=== PATIENT | female | born 1945 | race Caucasian/White ===

== ENCOUNTER 2024-04-28 13:27 | Emergency (ER) | payer MEDICARE, BC, SELFPAY ==
[2024-04-28] VITALS (7 sets, daily range): BP systolic 113–141; BP diastolic 55–78; PULSE 60–82; RESP 16–20; TEMP 36.7–36.9; O2SAT 95–98; BMI 26.2
--- NOTE | 2024-04-28 13:35 | XR_ITS ---
Examination: CT lumbar spine, without contrast. 2-D sagittal reconstructions. 2-D coronal reconstructions. 3-D reconstructions. Date and time of exam:April 28, 2024 1423 hours INDICATIONS: Onset lower back pain today with radiculopathy CTDI: vol (mGy):24.9 DLP: (mGycm):819 Technique: Multiple 1.25 mm axial sections of the lumbar spine without intravenous contrast have been obtained. 2-D sagittal and coronal reconstructions have been obtained. 3-D reconstructions have been obtained. Low dose protocols were performed. One or more of the following dose reduction techniques were used; automated exposure control, adjustment of the mA and/or KV according to patient size, use of iterative reconstruction technique. Findings: Severe osteopenia Chronic osteoporotic compressions L4. Acute appearing osteoporotic compression L4, depression of the inferior endplate with acute fracture lines, axial image 124 Minimal retropulsion 3 mm of the posterior lateral margin of this vertebral body, axial image 121 Axial images demonstrate no definite focal disc protrusion IMPRESSION: Severe osteopenia Acute appearing osteoporotic compression L4 vertebral body, depression of the inferior endplate
--- NOTE | 2024-04-28 13:52 | EDNOTE_ITS ---
ED Back Injury Pain RME/HPI General Chief Complaint: Back Pain/Injury Stated Complaint: BACK PAIN Time Seen by Provider: 04/28/24 13:29 Arrival date/time: 04/28/24 13:27 Limitations: no limitations RME / HPI RME / HPI Narrative: Patient with chronic LBP and sciatica, went to her PCP and was asked to lay on the table and perform a maneuver, was not able to get up due to pain. States dispite her pain tries to remain active. Can not do MRI due to her pacemaker. She has chronic constipation which responded to combination of MiraLax and suppository. Today her pain is not radiating today. Patient reports urinary incontinence at times over the past few days. No urinary incontinence was noted on arrival. I took over the care from Dr. Newman at 6 PM on 04/28/2024. See his notes for complete H&P and ED course. My review of the CT report is no acute L4 compression fracture. Blood tests remarkable for calcium 14.3. At this point, diagnoses include hypercalcemia and L4 compression fracture with urinary incontinence. I discussed the case with Dr. Powell ([facility]). About the presentation and exam and diagnostics and treatments here. And need of further care there. Will accept the patient. Juanpablo Arce MD Related Data Home Medications ?Medication ?Instructions ?Recorded ?Confirmed temazepam 15 mg capsule 30 mg PO HS 02/25/24 02/28/24 Allergies Allergy/AdvReac Type Severity Reaction Status Date / Time erythromycin base Allergy Intermediate Vomiting Verified 02/11/24 08:10 acetaminophen Allergy Mild FELT LIKE Verified 02/11/24 08:10 HAVING HEART ATTACK aspirin Allergy Mild Abdominal Verified 02/11/24 08:10 Pain hydrocodone Allergy Mild FELT LIKE Verified 02/11/24 08:10 HAVING HEART ATTACK tramadol Allergy Mild FELT LIKE Verified 02/11/24 08:10 HAVING HEART ATTACK zolpidem Allergy Mild REMAINS Verified 02/11/24 08:10 AWAKE Review of Systems Review of Systems Systems Reviewed: All systems reviewed, normal except as documented Past Medical History Past Medical History CARDIAC: Positive Cardiac Disorders, Cardiac Arrhythmia, Atrial Fibrillation (NO MEDS) and Hypertension (NO MEDS) GASTROINTESTINAL: Positive Gastrointestinal Disorders (CONSTIPATION) REPRODUCTIVE: Positive Previous Pregnancies MUSCULOSKELETAL: Positive Musculoskeletal Disorders, Arthritis, Osteoporosis and Degenerative Joint Disease OTHER HISTORY: Positive Anesthesia Reactions (VERBALLY RUDE, OUT FOR 3 DAYS) and Chicken Pox (UNKNOWN) Surgical History SURGICAL: Positive Pacemaker, Tonsillectomy, Gastric Bypass Surgery, Joint Replacement and Hysterectomy Social History SMOKING STATUS: Never smoker ED Exam General Limitations: Present no limitations General appearance: Present alert and in no apparent distress Head Head exam: Present atraumatic, normocephalic and normal inspection Eye Eye exam: Present normal appearance and EOMI ENT ENT exam: Present normal exam and normal oropharynx Neck Neck exam: Present normal inspection and full ROM Chest Chest inspection: Present normal inspection and symmetric chest wall rise Respiratory Respiratory exam: Present normal lung sounds bilaterally Cardiovascular Cardiovascular exam: Present regular rate and normal rhythm Abdominal Exam Abdominal exam: Present soft and normal bowel sounds; Absent distention or tenderness Extremities Exam Extremities exam: Present normal inspection Back Exam Back exam: Present normal inspection and other (Patient is slow to raise from the gurney. Is unable to do ROM or SLR due to pain. Feels light touch and temperature in her legs. Has normal skin color and pulses in both legs. No midline TTP. No paraspinal spasm) Course Course Course Narrative: 1800: Patient signed out to Dr. Arce pending transfer. Quality Measures none Orders Category Date Time Status EKG (ED ONLY) *Do not use* NOW Care 04/28/24 17:19 Completed Transfer to another facility [Transfer/Discharge] Stat Discharge 04/28/24 21:[address] lumbar spine wo con Stat Exams 04/28/24 13:35 Completed EKG (ED Only) Stat Exams 04/28/24 17:19 Draft CBC Stat Lab 04/28/24 16:21 Completed CMP [Comprehensive Metabolic Panel] Stat Lab 04/28/24 16:21 Completed Magnesium Stat Lab 04/28/24 16:21 Completed PTH [Parathyroid Hormone Intact] Stat Lab 04/28/24 16:21 Completed Troponin I Stat Lab 04/28/24 16:21 Completed UA [Urinalysis] Stat Lab 04/28/24 15:52 Ordered Urinalysis, C/S if Indicated Stat Lab 04/28/24 15:52 Ordered HYDROcodone*/APAP 5/325 [[place] 5/325] Med 04/28/24 13:39 Discontinued 1 tab PO X1 ONE Polyeth Glycol/Propylene Glyco [Miralax Pkt] Med 04/28/24 13:39 Discontinued 17 gm PO X1 ONE Sodium Chloride 0.9% 1000 ml [Ns] 1,000 ml Med 04/28/24 17:19 Active IV 250 mls/hr fentaNYL INJ [Sublimaze Inj] Med 04/28/24 15:44 Discontinued 50 mcg IM X1 ONE Reevaluation(s) Reevaluation #1: The patient and daughter were made aware of the CT findings. Daughter is demanding the patient to be admitted or transferred, despite lack of emergency condition that warrants this. Time: 15:30 Reevaluation #2: Patient and daughter made aware of plan to transfer. Time: 15:58 Vital Signs Vital signs: Vital Signs Temperature 98.4 F 04/28/24 13:30 Pulse Rate 77 04/28/24 13:30 Respiratory Rate 19 04/28/24 13:30 Blood Pressure 120/78 04/28/24 13:30 Pulse Oximetry (%) 95 04/28/24 13:30 Oxygen Delivery Method Room Air 04/28/24 13:30 Pulse ox is 95% on room air which is adequate. Back Pain / Injury MDM Narrative MDM Narrative:: Lilian Fisher am scribing for and in the presence of Dr. Newman. Patient data External records reviewed:: [facility] previous records (I reviewed H&P on 02/28/2024) and EMS form Clinical information provided by:: patient, EMS and family (Daughter- adds to hpi ) Social determinants that could affect healthcare access:: none Patient has the following chronic illnesses:: chronic LBP and sciatica chronic constipation How is presenting disease/condition affected by chronic disease/condition?: exacerbated by Evaluation data The following diagnostics were reviewed and interpreted by me:: lab results (Patients calcium is 14.2 ), radiology exam(s) and EKG tracing(s) (Sinus rhythm with arrhythmia, rate 72, nonspecific ST and T-wave changes) Lab and/or radiology exams considered but not ordered:: None Interpretation Summary: Ordering Physician: Delvin Newman MD Date of Service: 04/28/24 Procedure(s): CT lumbar spine wo con Accession Number(s): [id number] cc: Delvin Newman MD; Oj Burton MD~ Examination: CT lumbar spine, without contrast. 2-D sagittal reconstructions. 2-D coronal reconstructions. 3-D reconstructions. Date and time of exam:April 28, 2024 1423 hours INDICATIONS: Onset lower back pain today with radiculopathy CTDI: vol (mGy):24.9 DLP: (mGycm):819 Technique: Multiple 1.25 mm axial sections of the lumbar spine without intravenous contrast have been obtained. 2-D sagittal and coronal reconstructions have been obtained. 3-D reconstructions have been obtained. Low dose protocols were performed. One or more of the following dose reduction techniques were used; automated exposure control, adjustment of the mA and/or KV according to patient size, use of iterative reconstruction technique. Findings: Severe osteopenia Chronic osteoporotic compressions L4. Acute appearing osteoporotic compression L4, depression of the inferior endplate with acute fracture lines, axial image 124 Minimal retropulsion 3 mm of the posterior lateral margin of this vertebral body, axial image 121 Axial images demonstrate no definite focal disc protrusion IMPRESSION: Severe osteopenia Acute appearing osteoporotic compression L4 vertebral body, depression of the inferior endplate Dictated By: Oj Burtno MD Signed By: <Electronically signed by Oj Burton MD in OV> 04/28/24 1454 Medications / Prescriptions Medications or Prescriptions considered but not ordered:: None Medication administrations:: Medication Administration History Sodium Chloride (Ns) 1,000 mls @ 250 mls/hr IV .Q4H ONE Stop: 04/28/24 21:18 Last Admin: 04/28/24 17:39 Dose: 250 mls/hr Documented By: ED Discontinued Medications Hydrocodone Bitart/Acetaminophen (Hydrocodone/Apap 5/325 Tablet) 1 tab PO X1 ONE Stop: 04/28/24 13:40 Last Admin: 04/28/24 21:10 Dose: Not Given Documented By: AC Non-Admin Reason: Patient Refused Fentanyl Citrate (Fentanyl Cit Inj 50 Mcg/Ml Amp 2ml) 50 mcg IM X1 ONE Stop: 04/28/24 15:45 Last Admin: 04/28/24 17:09 Dose: 50 mcg Documented By: ED Polyethylene Glycol (Polyethylene Glycol 17 Gm Packet) 17 gm PO X1 ONE Stop: 04/28/24 13:40 Last Admin: 04/28/24 17:17 Dose: 17 gm Documented By: ED See above Consultations Consultation(s) initiated? (list below): Yes Consultation #1 (Physician, Specialty, Details): I spoke with hospitalist Dr. Lundberg. Discussed patients PMHx, HPI, ED course, exam findings, and radiology results. He recommended consulting with ortho prior to admission. Time: 15:40 Consultation #2 (Physician, Specialty, Details): I spoke with ortho Dr. Middleton. Discussed patients PMHx, HPI, ED course, exam findings, and radiology results. States patient required spine surgery, advised transferring for neurosurgery. Time: 15:45 Consultation #3 (Physician, Specialty, Details): 1651: I spoke with transfer nurse at [facility]. Discussed patients PMHx, HPI, ED course, exam findings, labs, and radiology results. Was unable to get ahold of neurosurgeon. States she will present the case and call back. 1656: I spoke with neurosurgeon Dr. Rashid. Discussed patients PMHx, HPI, ED course, exam findings, labs, and radiology results. States they do not have the equipment to perform the spinal surgery. Diagnosis Most likely diagnosis given after review of the tests above:: L4 compression fracture Admission Indicated Admission indicated?: not indicated Explain why admission is indicated or not indicated:: Requires txfer to facility with neurosurgery Admission Request Was there a request for admission?: No Disposition Plan Disposition Plan: other (specify) (Patient signed out to Dr. Arce ) Critical Care Time Critical Care Time Critical Care Time: Yes Total Critical Care Time (min.): 35 Attestation: The high probability of sudden, clinically significant deterioration in the patient's condition required the highest level of my preparedness to intervene urgently. The services I provided to this patient were to treat and/or prevent clinically significant deterioration. Services included the following: chart data review, reviewing nursing notes and/or old charts, documentation time, call center support consultant collaboration regarding findings and treatment options, medication orders and management, direct patient care, vital sign assessments and ordering, interpreting and reviewing diagnostic studies and lab tests. Aggregate critical care time includes only time during which I was engaged in work directly related to the patient's care, as described above, whether at bedside or elsewhere in the Emergency Department. It did not include time spent performing other reported procedures or the services of residents, students, nurses or physician assistants. Discharge Plan Plan Patient Disposition: [facility] Pt Being Transferred to: [facility] Service Needed for Transfer: Neurosurgery Patient condition on transfer: Stable Prescriptions/Referrals Prescriptions/Med Rec: No Action temazepam 15 mg capsule 30 mg PO HS Hold Instructions: Resume on 02/29/24. Patient Comments: ALTERNATE BETWEEN 15MG AND 30MG EVERY OTHER DAY ORALLY ONCE A DAY 30 DAYS Problem List Clinical Impression: Compression fracture, Hypercalcemia Patient/Caregiver Discharge Instructions Print Language: Guinean Stand Alone Forms: Zandra Award Info., Patient Portal Info Letter
--- NOTE | 2024-04-28 16:02 | PC.CM ---
Addendum entered by Diamond Krishnan RN 04/28/24 18:39: 1830 received call from Maria D at [facility], she wants to speak with Dr. Arce. Conference call connected. Addendum entered by Diamond Krishnan RN 04/28/24 18:09: 1810 called [facility], spoke to Maria D and initiate the transfer request. Addendum entered by Diamond Krishnan RN 04/28/24 17:11: 1711 images pushed to [facility] through [employer]. Addendum entered by Diamond Krishnan RN 04/28/24 17:10: 1710 clinicals sent to [facility]. Addendum entered by Diamond Krishnan RN 04/28/24 17:03: 1656 received call from Eulalia at [facility], she stated her neuro-surgery DrMiguel Mcintosh on the line and wants peer to peer with Dr. Newman. Conference call connected. Transfer is declined due to out of scope. Addendum entered by Diamond Krishnan RN 04/28/24 16:49: 1648 received call from Eulalia at [facility], initiated the transfer. She wants to speak with Dr. Newman. Conference call connected. Addendum entered by Diamond Krishnan RN 04/28/24 16:39: 1639 called [facility] to initiate the transfer. Left VM. Addendum entered by Diamond Krishnan RN 04/28/24 16:06: [address] [facility]. Original Note: 5009 received call from charge nurse that pt needs to be transferred for acute appearing osteoporotic compression L4 vertebral body needs neuro-surgical services.
[2024-04-28 16:32] LABS: Basophils % (Auto) 0 % (0-2.5); Eosinophils % (Auto) 0 % (0-10); Hematocrit 36.5 % (36.0-46.0); Hemoglobin 12.1 g/dL (12.0-16.0); Immature Granulocytes % (Auto) 1 % (0-0); Immature Granulocytes Auto 0.11 Thou/mm3 (0.00-0.00); Lymphocytes # (Auto) 0.7 Thou/mm3 (1.0-4.8); Lymphocytes % (Auto) 6 % (10-50); Mean Corpuscular HGB Conc 33.2 g/dl (31.0-37.0); Mean Corpuscular Hemoglobin 29.3 pg (25.0-35.0); Mean Corpuscular Volume 88 fL (80-100); Monocytes # (Auto) 0.7 Thou/mm3 (0.0-0.8); Monocytes % (Auto) 6 % (0-12); Neutrophils # (Auto) 10.6 Thou/mm3 (1.8-7.7); Neutrophils % (Auto) 88 % (37-80); Nucleated Red Blood Cell % 0 /100 WBC (0); Platelet Count 198 Thou/mm3 (140-440); RDW Standard Deviation 46.2 fL (36.4-46.3); Red Blood Count 4.13 Miln/mm3 (4.00-5.20); White Blood Count 12.1 Thou/mm3 (3.6-11.0)
[2024-04-28 16:48] LABS: Alanine Aminotransferase 11 U/L (10-49); Albumin, Serum 3.9 gm/dL (3.4-4.8); Albumin/Globulin Ratio 1.7 (1.2-2.2); Alkaline Phosphatase 121 U/L (46-116); Anion Gap 3 (7-16); Aspartate Amino Transferase 14 U/L (0-34); BUN/Creatinine Ratio 34 Ratio (12-20); Bilirubin,Total 0.4 mg/dL (0.3-1.2); Blood Urea Nitrogen 41 mg/dL (9-23); Carbon Dioxide 32.4 mMol/L (20.0-31.0); Chloride 101 mMol/L (98-107); Creatinine (Component) 1.2 mg/dL (0.6-1.3); Globulin 2.3 gm/dL (2.3-3.5); Glucose 131 mg/dL (74-106); Osmolality,Calculated 284 (275-295); Potassium 3.9 mMol/L (3.4-5.1); Sodium 136 mMol/L (136-145); Total Protein 6.2 gm/dL (5.7-8.2); eGFR 46 See Note
--- NOTE | 2024-04-28 16:50 | PC.NURSE ---
Pt. here from home to bed 9, pt. states she lifted some stuff about 3 weeks ago and has had back pain ever since. Pt.'s daughter is bedside, pt. lives with her whom she cares for. Daughter states she is caring for her dad pt.'s now. Pt. states she is severely constipated. Pt. states she is in pain when she moves.
[2024-04-28 16:55] LABS: Calcium 14.2 mg/dL (8.3-10.6); Calcium (Corrected) 14.3 mg/dL (8.5-10.1)
--- NOTE | 2024-04-28 17:07 | PC.NURSE ---
called pharmacy for Miralax. Pharmacy states they will send to the ER.
[2024-04-28] MEDS: fentaNYL CIT INJ 50 mCg/ML AMP 2ML IM (17:09)
[2024-04-28] MEDS: POLYETHYLENE GLYCOL 17 GM PACKET PO (17:17)
--- NOTE | 2024-04-28 17:19 | EKG_ITS ---
[facility] Test Date: 2024-04-28 Pat Name: ANDRES HUDDLESTON Department: Room: - Gender: Female Fixed Wing Aircraft Flight Mechanic: : [id number] Requested By: Delvin Newman Order Number: [id number] Reading MD: Delvin Newman Measurements Intervals [place] Rate: 72 P: 71 AK: 199 QRS: -1 QRSD: 93 T: 44 QT: 390 QTc: 429 Interpretive Statements SINUS RHYTHM WITH SINUS ARRHYTHMIA LOW QRS VOLTAGE IN EXTREMITY LEADS [QRS DEFLECTION < 0.5 mV IN LIMB LEADS] Compared to ECG 02/25/2024 10:19:58 Atrial-paced complex(es) or rhythm no longer present /store/S0/[id number]/ecg/[id number].pdf
--- NOTE | 2024-04-28 17:27 | PC.NURSE ---
Dr. Newman bedside talking with pt. and pt.'s daughter. Pt. has a pacemaker to her left upper chest. Pt. states her pacemaker is working well.
[2024-04-28] MEDS: SODIUM CHLORIDE 0.9% 1000 ML 1,000 ML 250 ML IV (17:39)
[2024-04-28 18:24] LABS: Parathyroid Hormone Intact 210.6 pg/ml (18.5-88.0)
--- NOTE | 2024-04-28 18:44 | PC.CC ---
LESLIE CC engaged by ED attending, for pt and daughter requesting SNF placement. Per ED attending pt unable to ambulate and is requiring max assist to complete ADLs. Per pts daughter Sophy Kim [phone], she is unable to fully care for pt, and is requesting SNF. [employer] met with pt and daughter at bedside. [employer] explained current barriers with pts primary health coverage requiring 3 midnight inpt stay for SNF placement. [employer] informed pt and daughter that case can be presented to hospitalist team, but is not a guarantee for admission. At this time pts daughter became verbally aggressive and stated that she is manager social services and supervises other social workers, and if pt is D/c home and anything happens to her that she will take legal action against the hospital. [employer] CC acknowledged pts daughter frustration and redirected conversation, asking pts daughter to refrain from making legal action threats, as [employer] is providing accurate information. LESLIE CC informed pt and her daughter that if pt is willing to pay privately pt can be placed from the ED, with immediate cost of room and board being several thousands of dollars and any other service being required would increase cost. [employer] CC provided secondary option of referral to services for nursing and PT. Per pts daughter, [facility] has been out to see pt and are limited in services they can provide. [employer] informed pt and her daughter that alternative would be for ED attending to consult hospitalist for possible admission. Pt and daughter agreeable with plan. ED attending consulted Dr. Middleton Orthopedic Surgeon, who suggest [facility] transfer neuro-surgery consult. LESLIE CC was able to meet with pt and daughter supporting ED attending about [facility] transfer. Pt and daughter agreeable to this plan.
[2024-04-28 18:50] LABS: Magnesium 2.1 mg/dL (1.6-2.6); Troponin I 0.031 ng/mL (0.0-0.045)
--- NOTE | 2024-04-28 20:28 | PC.NURSE ---
SPOKE TO ZUHAIR FROM [facility] JUST TO FOLLOW UP ON STATUS OF PATIENTS TRANSFER, THEY ARE WAITING FOR A CALL BACK FROM THEIR NEURO SURGERY MD
--- NOTE | 2024-04-28 20:54 | PC.NURSE ---
2052, ACCEPTED TO [facility] BY , ED TO ED, REPORT #[id number], SPOKE TO YONI
[2024-04-28] MEDS: HYDROcodone/APAP 5/325 TABLET 1 TAB PO (21:46)
--- NOTE | 2024-04-28 22:44 | PC.NURSE ---
Pt taken by ambulance to [facility] benjy at opprox 2210. Report called to Patricia NAJERA at [facility].
== END 2024-04-28 22:20 | disposition short-term general hospital (02) ==
PROVIDERS: Emergency Medicine; Emergency Provider Emergency Medicine; PCP Student in an Organized Health Care Education/Training Program
DX: M80.88XA Other osteoporosis with current pathological fracture, vertebra(e), initial encounter for fracture (principal); E83.52 Hypercalcemia; I10 Essential (primary) hypertension; I48.91 Unspecified atrial fibrillation; Z75.1 Person awaiting admission to adequate facility elsewhere
CPT/HCPCS: 36415; 72131; 80053; 81001; 83735; 83970; 84484; 85025; 93005; 96360; 96361; 96372; 99291; J3010; J7030; A9270

== ENCOUNTER 2024-07-26 00:08 | Emergency (ER) | payer MEDICARE, BC, SELFPAY ==
[2024-07-26] VITALS (13 sets, daily range): BP systolic 104–140; BP diastolic 53–76; PULSE 60–74; RESP 12–19; TEMP 36.1–36.8; O2SAT 96–100; BMI 23.5
--- NOTE | 2024-07-26 01:02 | EDNOTE_ITS ---
ED Back Injury Pain RME/HPI General Chief Complaint: Back Pain/Injury Stated Complaint: BACK PAIN Time Seen by Provider: 07/26/24 00:53 Arrival date/time: 07/26/24 00:08 RME / HPI RME / HPI Narrative: Dr. Asher?s Main ED Evaluation: 79yo female with a history of chronic lower back pain, sciatica BIBA from home presents to the ED for a chief complaint of back pain. Per EMS, patient was recently discharged from a SNF after being there for rehab secondary to a compression fracture. Patient states she's been home for the last 3 days, reporting she is only on Advil for pain. She states she was unable to tolerate the pain tonight, so she came in for evaluation. She states she has a history of thyroid problems. She denies any other associated symptoms. Related Data Home Medications ?Medication ?Instructions ?Recorded ?Confirmed temazepam 15 mg capsule 30 mg PO HS 02/25/24 4 Held on 02/28/24. Instructions: Resume on 02/29/24. Allergies Allergy/AdvReac Type Severity Reaction Status Date / Time No Known Allergies Allergy Verified 07/26/24 01:28 Review of Systems Review of Systems Systems Reviewed: All systems reviewed, normal except as documented Past Medical History Past Medical History NEUROLOGIC: Negative Neurological Disorders or Seizures CARDIAC: Positive Cardiac Disorders, Cardiac Arrhythmia, Atrial Fibrillation (NO MEDS) and Hypertension (NO MEDS); Negative Congestive Heart Failure RESPIRATORY: Negative Chronic Obstructive Pulmonary Disease (COPD), Smoking or Smoking Exposure GASTROINTESTINAL: Positive Gastrointestinal Disorders (CONSTIPATION) GENITOURINARY: Negative Genitourinary Disorders or Renal Disease REPRODUCTIVE: Positive Previous Pregnancies; Negative Pelvic Inflammatory Disease MUSCULOSKELETAL: Positive Musculoskeletal Disorders, Arthritis, Osteoporosis and Degenerative Joint Disease ENT: Positive Macular Degeneration (bilateral) ENDOCRINE: Negative Endocrine Disorders, Diabetes Mellitus Type 1 or Diabetes Mellitus Type 2 HEMATOLOGIC: Negative Blood Disorders OTHER HISTORY: Positive Anesthesia Reactions (VERBALLY RUDE, OUT FOR 3 DAYS) and Chicken Pox (UNKNOWN); Negative Blood Transfusions, Blood Transfusion Reaction, MRSA or Cancer Surgical History SURGICAL: Positive Pacemaker, Tonsillectomy, Gastric Bypass Surgery, Joint Replacement and Hysterectomy Social History SMOKING STATUS: Never smoker ED Exam Narrative Physical exam: GENERAL APPEARANCE: alert and oriented x 4, well-developed, well-nourished, no acute distress VITALS: All vitals were reviewed and the pulse ox is 96% on room air, which is normal according to my interpretation. HEENT: Normocephalic, atraumatic; pupils equal, round, reactive to light; EOMI; mucous membranes pink, moist; oropharynx clear NECK: Supple LUNGS: CTABL; no wheezes, no rales, no rhonchi HEART: Regular rate, regular rhythm; normal S1, S2; no murmurs ABDOMEN: non distended; normal BS; soft, no tenderness, no guarding, no rebound; no masses, no organomegaly, no hernia BACK: no CVA tenderness EXTREMITIES: atraumatic; no edema NEUROLOGIC: awake; alert and oriented x4; cranial nerves II-XII grossly intact; no focal sensory or motor deficits PSYCHIATRIC: appropriate mood and affect SKIN: warm, dry, normal color; no rashes Course Quality Measures none Orders Category Date Time Status Director Of Scientific Research Q4H START 00 Care 07/26/24 01:12 Active Continuous Pulse Oximetry NOW Care 07/26/24 01:12 Completed EKG (ED ONLY) *Do not use* NOW Care 07/26/24 03:09 Completed IV [Insert IV] NOW Care 07/26/24 01:09 Active EKG (ED Only) Stat Exams 07/26/24 03:09 Ordered CBC Stat Lab 07/26/24 01:52 Completed CMP [Comprehensive Metabolic Panel] Stat Lab 07/26/24 01:52 Completed Free T4 (Free Thyroxine) Stat Lab 07/26/24 01:52 Completed Magnesium Stat Lab 07/26/24 01:52 Completed PTH [Parathyroid Hormone Intact] Stat Lab 07/26/24 01:52 Completed TSH [Thyroid Stimulating Hormone] Stat Lab 07/26/24 01:52 Completed Troponin I Stat Lab 07/26/24 01:52 Completed Urinalysis, C/S if Indicated Stat Lab 07/26/24 01:13 Ordered Acetaminophen Ivpb [Ofirmev Inj] Med 07/26/24 01:09 Discontinued 1,000 mg in 100 ml IV X1 Morphine Inj Med 07/26/24 02:11 Discontinued 2 mg IVP Q30M PRN Morphine Inj Med 07/26/24 01:09 Discontinued 2 mg IVP X1 ONE Ondansetron Inj [Zofran Inj] Med 07/26/24 01:09 Discontinued 4 mg IV X1 ONE Sodium Chloride 0.9% 1000 ml [Ns] 1,000 ml Med 07/26/24 03:09 Discontinued IV 999 mls/hr Sodium Chloride 0.9% 1000 ml [Ns] 1,000 ml Med 07/26/24 03:09 Discontinued IV 999 mls/hr fentaNYL INJ [Sublimaze Inj] Med 07/26/24 03:07 Discontinued 50 mcg IVP X1 ONE Vital Signs Vital signs: Vital Signs Temperature 98.2 F 07/26/24 00:19 Pulse Rate 70 07/26/24 00:19 Respiratory Rate 19 07/26/24 00:19 Blood Pressure 140/68 H 07/26/24 00:19 Pulse Oximetry (%) 96 07/26/24 00:19 Oxygen Delivery Method Room Air 07/26/24 00:19 Back Pain / Injury MDM Narrative MDM Narrative:: Scribe Attestation: 07/26/24 - Elizabet Fisher am scribing for and in the presence of Dr. Asher. Patient data External records reviewed:: [facility] previous records (Per chart review, patient was transferred from our facility to [facility] on 04/28/24 for L4 compression fracture.) Clinical information provided by:: patient Social determinants that could affect healthcare access:: none Patient has the following chronic illnesses:: chronic lower back pain, sciatica How is presenting disease/condition affected by chronic disease/condition?: caused by Evaluation data The following diagnostics were reviewed and interpreted by me:: lab results and EKG tracing(s) Lab and/or radiology exams considered but not ordered:: none Interpretation Summary: WBC count is 13.6, Calcium is elevated at 13.8, Magnesium is normal, TSH and Free T4 are normal, PTH Intact is elevated at 160.5, according to my interpretation. EKG done at 0335, paced rhythm, rate of 60, good sensing, good capture, no acute ischemia, according to my interpretation. Medications / Prescriptions Medications or Prescriptions considered but not ordered:: none Medication administrations:: Medication Administration History Discontinued Medications Fentanyl Citrate (Fentanyl Cit Inj 50 Mcg/Ml Amp 2ml) 50 mcg IVP X1 ONE Stop: 07/26/24 03:08 Last Admin: 07/26/24 03:20 Dose: 50 mcg Documented By: ASHLY Acetaminophen (Ofirmev Inj) 1,000 mg in 100 mls @ 250 mls/hr IV X1 ONE Stop: 07/26/24 01:32 Last Infusion: 07/26/24 03:35 Dose: Infused Documented By: Admin: 07/26/24 01:51 Dose: 250 mls/hr Documented By: ASHLY Sodium Chloride (Ns) 1,000 mls @ 999 mls/hr IV .Q1H1M ONE Stop: 07/26/24 04:09 Sodium Chloride (Ns) 1,000 mls @ 999 mls/hr IV .Q1H1M ONE Stop: 07/26/24 04:09 Morphine Sulfate (Morphine Sulf Inj 10 Mg/Ml Vial) 2 mg IVP X1 ONE Stop: 07/26/24 01:10 Last Admin: 07/26/24 01:50 Dose: 2 mg Documented By: ASHLY Morphine Sulfate (Morphine Sulf Inj 10 Mg/Ml Vial) 2 mg IVP Q30M PRN PRN Reason: back pain Ondansetron HCl (Ondansetron Inj 2 Mg/Ml Inj 2 Ml) 4 mg IV X1 ONE; Protocol Stop: 07/26/24 01:10 Last Admin: 07/26/24 01:51 Dose: 4 mg Documented By: ASHLY see above Consultations Consultation(s) initiated? (list below): No Diagnosis Differential diagnosis back pain/injury: other (exacerbation of chronic pain, narcotic withdrawal, contusion, musculoskeletal pain) Most likely diagnosis given after review of the tests above:: see below Admission Indicated Admission indicated?: not indicated Admission Request Was there a request for admission?: No Disposition Plan Disposition Plan: other (specify) (Signed out to the next oncoming provider at 0600 pending social security benefits interviewer consult.) Discharge Plan Prescriptions/Referrals Prescriptions/Med Rec: No Action temazepam 15 mg capsule 30 mg PO HS Patient Comments: ALTERNATE BETWEEN 15MG AND 30MG EVERY OTHER DAY ORALLY ONCE A DAY 30 DAYS Referrals: Sergio Raymond [Primary Care Provider] - In 1 week Problem List Clinical Impression: Back pain Patient/Caregiver Discharge Instructions Print Language: German
[2024-07-26] MEDS: MORPHINE SULF INJ 10 MG/ML VIAL 2 MG IVP (01:50)
[2024-07-26] MEDS: ONDANSETRON INJ 2 MG/ML INJ 2 ML 4 MG IV (01:51)
[2024-07-26] MEDS: ACETAMINOPHEN IVPB 1,000 MG/100 ML VIAL 250 MG IV (01:51)
[2024-07-26 02:15] LABS: Basophils # (Auto) 0.1 Thou/mm3 (0.0-0.2); Basophils % (Auto) 0 % (0-2.5); Eosinophils # (Auto) 0.3 Thou/mm3 (0.0-0.5); Eosinophils % (Auto) 2 % (0-10); Hematocrit 34.5 % (36.0-46.0); Hemoglobin 11.5 g/dL (12.0-16.0); Immature Granulocytes % (Auto) 2 % (0-0); Immature Granulocytes Auto 0.32 Thou/mm3 (0.00-0.00); Lymphocytes # (Auto) 1.8 Thou/mm3 (1.0-4.8); Lymphocytes % (Auto) 13 % (10-50); Mean Corpuscular HGB Conc 33.3 g/dl (31.0-37.0); Mean Corpuscular Hemoglobin 30.3 pg (25.0-35.0); Mean Corpuscular Volume 91 fL (80-100); Monocytes # (Auto) 1.4 Thou/mm3 (0.0-0.8); Monocytes % (Auto) 11 % (0-12); Neutrophils # (Auto) 9.8 Thou/mm3 (1.8-7.7); Neutrophils % (Auto) 72 % (37-80); Nucleated Red Blood Cell % 0 /100 WBC (0); Platelet Count 154 Thou/mm3 (140-440); RDW Standard Deviation 49.2 fL (36.4-46.3); Red Blood Count 3.79 Miln/mm3 (4.00-5.20); White Blood Count 13.6 Thou/mm3 (3.6-11.0)
[2024-07-26 02:37] LABS: Parathyroid Hormone Intact 160.5 pg/ml (18.5-88.0)
[2024-07-26 02:53] LABS: Alanine Aminotransferase 14 U/L (10-49); Albumin, Serum 4.1 gm/dL (3.4-4.8); Albumin/Globulin Ratio 1.3 (1.2-2.2); Alkaline Phosphatase 92 U/L (46-116); Anion Gap 7 (7-16); Aspartate Amino Transferase 28 U/L (0-34); BUN/Creatinine Ratio 26 Ratio (12-20); Bilirubin,Total 0.5 mg/dL (0.3-1.2); Blood Urea Nitrogen 23 mg/dL (9-23); Carbon Dioxide 28.2 mMol/L (20.0-31.0); Chloride 108 mMol/L (98-107); Creatinine (Component) 0.9 mg/dL (0.6-1.3); Estimated Creatinine Clearance 50.1 mL/min (>60); Globulin 3.1 gm/dL (2.3-3.5); Glucose 103 mg/dL (74-106); Magnesium 1.9 mg/dL (1.6-2.6); Osmolality,Calculated 288 (275-295); Potassium 4.3 mMol/L (3.4-5.1); Sodium 143 mMol/L (136-145); Total Protein 7.2 gm/dL (5.7-8.2); eGFR > 60 See Note
[2024-07-26 02:55] LABS: Free T4 (Free Thyroxine) 1.18 ng/dL (0.89-1.76); Thyroid Stimulating Hormone 2.67 uIU/mL (0.55-4.78)
[2024-07-26 03:01] LABS: Calcium 13.8 mg/dL (8.3-10.6); Calcium (Corrected) 13.8 mg/dL (8.5-10.1)
--- NOTE | 2024-07-26 03:09 | EKG_ITS ---
[facility] Test Date: 2024-07-26 Pat Name: ANDRES HUDDLESTON Department: Room: - Gender: Female Reset Merchandiser: : 1945 Requested By: Elier Parks Order Number: [id number] Reading MD: Elier Parks Measurements Intervals Salley Rate: 60 P: 160 NV: 226 QRS: 13 QRSD: 100 T: 21 QT: 426 QTc: 426 Interpretive Statements ELECTRONIC ATRIAL PACEMAKER LOW QRS VOLTAGE IN EXTREMITY LEADS [QRS DEFLECTION < 0.5 mV IN LIMB LEADS] ABNORMAL RHYTHM ECG Compared to ECG 04/28/2024 17:42:30 Sinus rhythm no longer present Sinus arrhythmia no longer present /store/S0/[id number]/[id number].pdf
[2024-07-26] MEDS: fentaNYL CIT INJ 50 mCg/ML AMP 2ML IVP (03:20)
[2024-07-26 03:32] LABS: Troponin I < 0.020 ng/mL (0.0-0.045)
[2024-07-26] MEDS: fentaNYL CIT INJ 50 mCg/ML AMP 2ML IV (05:57)
[2024-07-26] MEDS: SODIUM CHLORIDE 0.9% 1000 ML 1,000 ML 999 ML IV (05:58)
--- NOTE | 2024-07-26 08:50 | PC.CC ---
Patient is a 79 year-old female who was BIBA for back pain. ASWElsie made psph-ig-aibg contact with patient. ASW introduced self, role, and reason for visit. Patient appeared alert and oriented to self, location, and situation. Patient was pleasant and engaged in initial assessment. Patient confirmed information on demographics and reports to living with her . At bedside was patient's son-in-law Erik Givens whom patient provided consent to remain in the room. Patient's son in law reports that his Sophy who is patient's daughter knows more information about the medical care patient is receiving and would be arriving to the hospital shortly. Patient was recently released from [facility] in [place], [place]. Patient reports she was receiving rehabilitation services and was there for 2.5-3 months. Per patient, she was discharged on 07/21/2024 but felt like she was not ready to d/c; however, does not want to return to this facility. At home patient is not able to ambulate as her pain is at a level 10. When she is not in pain she has been able to ambulate with a walker. Patient's daughter, Sophy has been assisting the patient complete her ADLs. Patient does not use any DME at home. Patient stated she has a thyroid medical issue that she takes medication for to help reduce her calcium level; however, this is causing her bones to be fragile. ASW to remain available for any social work coordinator needs.
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
--- NOTE | 2024-07-26 09:40 | EDNOTE_ITS ---
Emergency Room Addendum Addendum Narrative: 0600: Care assumed from Dr. Asher, the previous shift emergency physician. Past medical, surgical, social and family history reviewed. Vitals and home medications reviewed. I will assume the care of the patient at this time, pending social media content specialist consult. Please refer to the emergency department record for history and examination from initial visit.? 79 year old female with past medical history significant for chronic lower back pain and sciatica presents to the Emergency Department with complaint of back pain. She was transferred to [facility] on 04/28/24 for compression fracture and hypercalcemia. They elected to hold off intermission until calcium was managed. She was transferred from [facility] to rehab, but the patient was in so much pain that she was unable to follow physical therapy so the patient was discharged to [facility]. However, the daughter cannot take care of the patient at home. I reviewed the lumbar spine CT findings from 04/28/24 and compared them to today's lumbar spine CT findings and they are worse today (see finding below). We will try to transfer the patient for orthospine. Physical exam by me shows patient has back pain. 1800: Patient was signed out to Dr. Asher. Past medical, surgical, social and family history reviewed. Vitals and home medications reviewed. Results and treatment plan discussed. They will assume the care of the patient at this time and will follow the patient, pending transfer the patient for orthospine. RADIOLOGY Procedure(s): CT lumbar spine wo con Accession Number(s): [id number] cc: Sergio Raymond; Tobi Teresa MD; Oj Burton MD~ Examination: CT lumbar spine, without contrast. 2-D sagittal reconstructions. 2-D coronal reconstructions. 3-D reconstructions. Date and time of exam:July 26, 2024 1057 hours INDICATIONS: History acute appearing osteoporotic compression L4 vertebral body depression inferior endplate on CT lumbar spine April 28, 2024 with persistent back pain CTDI: vol (mGy):22.1 DLP: (mGycm):603 Technique: Multiple 1.25 mm axial sections of the lumbar spine without intravenous contrast have been obtained. 2-D sagittal and coronal reconstructions have been obtained. 3-D reconstructions have been obtained. Low dose protocols were performed. One or more of the following dose reduction techniques were used; automated exposure control, adjustment of the mA and/or KV according to patient size, use of iterative reconstruction technique. Findings: Severe osteopenia Worsening severe acute appearing compression fracture L2, reduction in height 80% Retropulsion posterior inferior margin of this vertebral body 4 mm Worsening severe compression fracture L4, reduction in height 70%, this fracture appears subacute L4-L5 3 mm central lumbar disc bulge IMPRESSION: Worsening severe acute appearing compression fracture L2, reduction in height 80% Worsening severe compression fracture L4, reduction in height 70%, this fracture appears subacute Dictated By: jO Burton MD
--- NOTE | 2024-07-26 10:01 | XR_ITS ---
Examination: CT lumbar spine, without contrast. 2-D sagittal reconstructions. 2-D coronal reconstructions. 3-D reconstructions. Date and time of exam:July 26, 2024 1057 hours INDICATIONS: History acute appearing osteoporotic compression L4 vertebral body depression inferior endplate on CT lumbar spine April 28, 2024 with persistent back pain CTDI: vol (mGy):22.1 DLP: (mGycm):603 Technique: Multiple 1.25 mm axial sections of the lumbar spine without intravenous contrast have been obtained. 2-D sagittal and coronal reconstructions have been obtained. 3-D reconstructions have been obtained. Low dose protocols were performed. One or more of the following dose reduction techniques were used; automated exposure control, adjustment of the mA and/or KV according to patient size, use of iterative reconstruction technique. Findings: Severe osteopenia Worsening severe acute appearing compression fracture L2, reduction in height 80% Retropulsion posterior inferior margin of this vertebral body 4 mm Worsening severe compression fracture L4, reduction in height 70%, this fracture appears subacute L4-L5 3 mm central lumbar disc bulge IMPRESSION: Worsening severe acute appearing compression fracture L2, reduction in height 80% Worsening severe compression fracture L4, reduction in height 70%, this fracture appears subacute
[2024-07-26] MEDS: HYDROcodone/APAP 5/325 TABLET 1 TAB PO (10:05)
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
--- NOTE | 2024-07-26 15:42 | PC.NURSE ---
Pt. states she wants a sandwich, Dr. Teresa states it's ok to give pt. a sandwich, sandwich, ice water given, pt. states thank you, daughter is bedside to help pt. eat.
--- NOTE | 2024-07-26 17:36 | PC.NURSE ---
I SPOKE WITH THE PT AND THE DAUGHTER GURU WHO WAS PRESENT IN THE PT''S ROOM AND THEY STATED TO ME THAT THEY DO NOT WITH TO RETURN TO [facility] IN [place].
--- NOTE | 2024-07-26 17:44 | PC.NURSE ---
I FAXED OVER THE PT FS TO THE [facility] AT THIS TIME.
--- NOTE | 2024-07-26 17:57 | PC.CC ---
Addendum entered by Diamond Krishnan RN 07/26/24 18:05: 1755 Per Sophy notes I SPOKE WITH THE PT AND THE DAUGHTER SOPHY WHO WAS PRESENT IN THE PT''S ROOM AND THEY STATED TO ME THAT THEY DO NOT WITH TO RETURN TO THE [facility]ICAL [facility] IN [place]. I also review her note that she is working with [facility]. Addendum entered by Diamond Krishnan RN 07/26/24 17:59: 1230 Due to working on high volumes of transfers ED and inpatient, unable to work on transfer and ER was told to help out with reaching out to transfer centers. Original Note: [address] Teresa that pt needs to be transferred for worsening severe compression fracture L4,Worsening severe acute appearing compression fracture L2. Dr. Teresa stated [facility] for compression fracture and hypercalcemia. They elected to hold off intermission until calcium was managed. She was transferred [facility] to [facility]hab, but the patient was in so much pain that she was unable to follow physical therapy so the patient was discharged to [facility]. Dr. Teresa stated to follow up with [facility].
--- NOTE | 2024-07-26 18:02 | EDNOTE_ITS ---
Emergency Room Addendum Addendum Narrative: 1800: Care assumed from Dr. Teresa, the previous shift emergency physician. Past medical, surgical, social and family history reviewed. Vitals and home medications reviewed. Results and treatment plan discussed. I will assume the care of the patient at this time and will follow the patient, pending transfer for orthospine. Please refer to the emergency department record for history and examination from initial visit. 1908: Spoke with [facility]'s transfer center. Awaiting callback on whether or not they accept the patient for transfer. 2134: Spoke with Dr. Rashid, neurosurgeon and spinal specialist from [facility], who declined the patient for transfer due to not having kyphoplasty at their facility. 2318: Spoke with Dr. Lockhart, hospitalist from [facility], who accepts the patient for transfer. 0600: Care signed out to Dr. Teresa (emergency physician). Past medical, surgical, social and family history reviewed. Vitals and home medications reviewed. Results and treatment plan discussed. They will assume the care of the patient at this time and will follow the patient, pending bed availability at [facility].
--- NOTE | 2024-07-26 19:09 | PC.NURSE ---
DR. SEGURA IS ON THE PHONE WITH [facility] AT THIS TIME.
--- NOTE | 2024-07-26 20:14 | PC.NURSE ---
IVONNE FROM THE [facility] CALLED AND THEY ARE DECLINING THE PT AT THIS TIME STATING SHE NEEDS HIGHER LEVEL OF CARE THEN WHAT THEY CAN OFFER.
--- NOTE | 2024-07-26 20:32 | PC.NURSE ---
I SPOKE WITH VANI FROM [facility] AND THEY DO NOT HAVE SPINAL OR NEURO AT THIS TIME.
[2024-07-26 21:17] LABS: Collection Type, Urine Clean Catch; RBC,Urine 0 /hpf (0-3)
[2024-07-26 21:28] LABS: Bilirubin,Urine Negative (Negative); Blood,Urine Negative (Negative); Clarity,Urine Turbid (Clear/Hazy); Color,Urine Lt-Yellow (Lt Yel-Yel); Culture Indicated,Urine Not Indicated; Glucose, Urine Negative (Negative); Ketones,Urine Negative (Negative); Leukocyte Esterase,Urine Positive (Negative); Nitrite,Urine Negative (Negative); Protein,Urine 1+ (Neg - Trace); Specific Gravity,Urine 1.019 (1.001-1.035); Squamous Epithelial Cell,Urine 4 /hpf (0-5); Urobilinogen,Urine Negative mg/dL (0.0-1.0); WBC,Urine 7 /hpf (0-5)
--- NOTE | 2024-07-26 21:33 | PC.NURSE ---
I FAXED OVER THE PT INFORMATION TO THE [facility] AT THIS TIME.
--- NOTE | 2024-07-26 21:41 | PC.NURSE ---
[facility] DECLINED THE PT AT THIS TIME STATING THE PT NEEDS HIGHER LEVEL OF CARE.
--- NOTE | 2024-07-26 21:45 | PC.NURSE ---
I SPOKE WITH MIKEL FROM THE [facility] AND MIKEL STATED TO ME THAT THEY ARE HOLDING OVER 190 ADMISSIONS IN THEIR ER AT THIS TIME AND NOT ABLE TO HELP US. MIKEL STATED THAT WE CAN CALL BACK AFTER WE HAVE TRIED MANY OTHER FACILITIES.
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
--- NOTE | 2024-07-26 23:09 | PC.NURSE ---
I SPOKE WITH TERESA FROM [facility] IN [place] AND SHE ASKED THAT I FAX OVER THE PT INFORMATION AT THIS TIME AND SHE WILL GIVE US A CALL BACK.
[2024-07-26] MEDS: TEMAZEPAM 15 MG CAPSULE 30 MG PO (23:45)
--- NOTE | 2024-07-26 23:48 | PC.NURSE ---
shanthi [phone] daughter
--- NOTE | 2024-07-26 23:56 | PC.NURSE ---
THIS PT IS ACCEPTED TO [facility] BY DR. SKY FROM NEURO AND DR. HITCHCOCK THE HOSPITALIST. AT THIS TIME WE ARE STILL PENDING A BED TO BE AVAILABLE. [facility] WAS THE FACILITY REP I SPOKE WITH FOR ACCEPTING INFORMATION.
[2024-07-27] VITALS (15 sets, daily range): BP systolic 102–126; BP diastolic 54–94; PULSE 60–73; RESP 16–28; TEMP 36.1–37.2; O2SAT 92–100
--- NOTE | 2024-07-27 06:00 | PD.EDADDENDU ---
Emergency Room Addendum Addendum Narrative: 0600: Care assumed from Dr. Asher, the previous shift emergency physician. Past medical, surgical, social and family history reviewed. Vitals and home medications reviewed. I will assume the care of the patient at this time, pending bed availability at [facility]. Please refer to the emergency department record for history and examination from initial visit.? EMS notes reviewed by me. Nursing notes reviewed by me. Vital signs reviewed by me. [place] medical records reviewed by me. 1800: Patient has remained stable through ED course. Patient was signed out to Dr. Asher pending transfer.
--- NOTE | 2024-07-27 12:03 | PC.CM ---
Addendum entered by Caryl Almeida RN 07/27/24 17:12: I spoke to [facility] and they still do not have a bed for patient. Original Note: I called [facility] and I spoke to Nadege with the transfer center. She states patient has been accepted to [facility] in [place] but they do not have any open beds at this time. I updated Evette charge nurse.
--- NOTE | 2024-07-27 16:54 | PC.LAC ---
[facility] called to verify that the pt still needs a bed, I confirmed, they stated that she is still on the waiting list with no known admit time.
--- NOTE | 2024-07-27 17:38 | PC.NURSE ---
Pt states she has not had a bowel movement for 5-6 days, and last one she bowel movement she had, she needed two suppositories before it would work
--- NOTE | 2024-07-27 20:14 | PD.EDADDENDU ---
Emergency Room Addendum Addendum Narrative: 1800: Care assumed from Dr. Teresa, the previous shift emergency physician. Past medical, surgical, social and family history reviewed. Vitals and home medications reviewed. Results and treatment plan discussed. I will assume the care of the patient at this time and will follow the patient, pending bed availability at [facility]. Please refer to the emergency department record for history and examination from initial visit. The patient was placed in ED observation care at 07/27/24 at 1800 hours. The patient was placed in ED observation care because of pending bed availability at [facility]. The patients past medical history, social history, and family history were reviewed. Patient requested an enema due to not having a bowel movement for 6 days. 0600: Care signed out to Dr. Teresa (emergency physician). Past medical, surgical, social and family history reviewed. Vitals and home medications reviewed. Results and treatment plan discussed. They will assume the care of the patient at this time and will follow the patient, pending bed availability at [facility].
[2024-07-27] MEDS: TEMAZEPAM 15 MG CAPSULE 30 MG PO (21:32)
[2024-07-28] VITALS (16 sets, daily range): BP systolic 109–138; BP diastolic 58–69; PULSE 60–65; RESP 16–23; TEMP 36.5–36.8; O2SAT 87–97
--- NOTE | 2024-07-28 03:45 | PC.NURSE ---
SPOKE WITH RELL FROM [facility] TO FOLLOW UP ON BED STATUS FOR PATIENT TRANSFER, SHE STATED THAT WE ARE STILL WAITING FOR A BED AND TO CALL BACK AFTER 10AM
--- NOTE | 2024-07-28 06:39 | PD.EDADDENDU ---
Emergency Room Addendum Addendum Narrative: 0600: Care assumed from Dr. Asher, the previous shift emergency physician. Past medical, surgical, social and family history reviewed. Vitals and home medications reviewed. Results and treatment plan discussed. The patient was placed in ED observation care at 0600 07/28/2024, pending bed availability at [facility]. While in ED observation the pt will have access to water, food, and personal hygiene. If the pt takes home medication(s), they will be continued in ED observation. Please refer to the emergency department record for history and examination.?Patient presented to the ED on 07/26/2024 for back pain. Evidently patient has history of chronic lower back pain and was treated at [facility] on 04/2024 for compression fracture and hypercalcemia. Patient was then discharged to [facility] in [place], [place] for physical therapy and was there 2-3 months. However, due to the pain patient was unable to perform physical therapy and was subsequently discharged to [facility] on 07/21/2024. Daughter reports patient is not able to ambulate at home and requesting placement to a longterm. ancillary services manager was consulted. On 07/26/[address] lumbar spine wo con was performed showing worsening severe acute appearing compression fracture L2 and worsening severe compression fracture L4. Transfer nurse was contacted to initiate transfer. Patient stated she did not want to return to [facility]. On 07/26/2024, patient was accepted at [facility] by Dr. Hernandez and neuro Dr. Lockhart, pending bed availability. Charge nurse reports facility was contacted at 04:00 am today 07/28/2024 and was advised to call back after 10:00 am for update on bed availability. 1600: RN reports he received a call from [facility] and at this time there is not bed available. 1800: Patient signed out to Dr. Fitzgerald, pending bed availability for transfer to [facility].
[2024-07-28] MEDS: CINACALCET HCL 30 MG TABLET (NON-FORM) PO (09:48)
--- NOTE | 2024-07-28 10:08 | PC.CM ---
I called [facility] to follow up on bed availably. I spoke to Tom and she states they still do not have any beds available. I will follow up later today.
--- NOTE | 2024-07-28 17:41 | PC.NURSE ---
Got a call from [facility] specialty, [place] [facility] [address] [facility] [address] [place] and nurse to nurse report [phone]
--- NOTE | 2024-07-28 17:48 | PC.CC ---
ASWElsie was consulted by marketing services specialist Josee to help arrange transportation for transfer to [facility] in [place]. ASW made face to face contact with patient and daughter, Sophy who is at bedside to inform them ASW was arranging transportation to [facility] in [place]. ASW arranged transportation with [facility] for 1999 or sooner if able.
--- NOTE | 2024-07-28 18:53 | PC.NURSE ---
I called [facility] and spoke to Linn NAJERA to whom i gave report to
== END 2024-07-28 19:07 | disposition short-term general hospital (02) ==
PROVIDERS: Emergency Provider Emergency Medicine; PCP Internal Medicine
DX: M48.56XA Collapsed vertebra, not elsewhere classified, lumbar region, initial encounter for fracture (principal); M54.40 Lumbago with sciatica, unspecified side; I48.91 Unspecified atrial fibrillation; M81.0 Age-related osteoporosis without current pathological fracture; Z95.0 Presence of cardiac pacemaker; Z98.84 Bariatric surgery status; Z75.1 Person awaiting admission to adequate facility elsewhere
CPT/HCPCS: 36415; 72131; 80053; 81001; 83735; 83970; 84439; 84443; 84484; 85025; 93005; 96361; 96365; 96366; 96375; 99285; J0131; J0604; J2270; J2405; J3010; J7030; A9270

== ENCOUNTER → 2024-09-22 | Outpatient (CLI) | payer MEDICARE, BC, SELFPAY ==
[2024-09-22 14:31] LABS: Glucose Estimated Average 105 mg/dL (80-131); Hemoglobin A1C 5.3 % Hgb (4.8-6.0)
[2024-09-22 14:35] LABS: Parathyroid Hormone Intact 6.2 pg/ml (18.5-88.0)
[2024-09-22 14:54] LABS: CA 15-3 16.5 U/mL (<32.4)
[2024-09-22 14:56] LABS: Alanine Aminotransferase 9 U/L (10-49); Albumin, Serum 3.7 gm/dL (3.4-4.8); Albumin/Globulin Ratio 1.2 (1.2-2.2); Alkaline Phosphatase 141 U/L (46-116); Anion Gap 9 (7-16); Aspartate Amino Transferase 17 U/L (0-34); BUN/Creatinine Ratio 17 Ratio (12-20); Bilirubin,Total 0.4 mg/dL (0.3-1.2); Blood Urea Nitrogen 22 mg/dL (9-23); Calcium 9.9 mg/dL (8.3-10.6); Calcium (Corrected) 10.1 mg/dL (8.5-10.1); Carbon Dioxide 24.4 mMol/L (20.0-31.0); Cardiac Risk Estimate 3.2 RATIO (3.7-5.6); Chloride 109 mMol/L (98-107); Cholesterol 183 mg/dL (132-200); Creatinine (Component) 1.3 mg/dL (0.6-1.3); Globulin 3.1 gm/dL (2.3-3.5); Glucose 70 mg/dL (74-106); HDL Cholesterol 57 mg/dL (40-60); LDL Cholesterol,Calculated 105 mg/dL (0-130); Osmolality,Calculated 284 (275-295); Potassium 4.5 mMol/L (3.4-5.1); Sodium 142 mMol/L (136-145); Thyroid Stimulating Hormone 1.51 uIU/mL (0.55-4.78); Total Protein 6.8 gm/dL (5.7-8.2); Triglycerides 104 mg/dL (30-150); eGFR 42 See Note
[2024-09-28 19:50] LABS: Abnormal protein band 1 1.2 g/dL (NONE DETECTED); Albumin 3.7 g/dL (3.8-4.8); Alpha-1-Globulin 0.3 g/dL (0.2-0.3); Alpha-2-Globulin 0.7 g/dL (0.5-0.9); Beta-1-Globulin 0.4 g/dL (0.4-0.6); Beta-2-globulin 0.2 g/dL (0.2-0.5); Gamma Globulin 1.6 g/dL (0.8-1.7)
[2024-09-29 06:58] LABS: Protein, total, serum 6.8 g/dL (6.1-8.1)
== END | disposition home or self-care (01) ==
LOC: SLDO 11:04
PROVIDERS: Referring Provider Internal Medicine; Visit Provider Internal Medicine
DX: E21.3 Hyperparathyroidism, unspecified (principal); R22.2 Localized swelling, mass and lump, trunk
CPT/HCPCS: 36415; 80053; 80061; 83036; 83970; 84155; 84165; 84443; 86300; 86304